=== PATIENT | female | born 1990 | race Hispanic/Latino ===

== ENCOUNTER 2019-12-17 08:22 | Emergency (ER) | payer OTHER ==
[2019-12-17] MEDS ORDERED: Acetaminophen 500 MG TAB ONE (08:44)
== END 2019-12-17 09:07 | disposition home or self-care (01) ==
LOC: ERS 08:22
DX: O99.89 Other specified diseases and conditions complicating pregnancy, childbirth and the puerperium (principal); U07.1 COVID-19
CPT/HCPCS: 99283

== ENCOUNTER 2019-12-23 11:18 | Emergency (ER) | payer OTHER ==
[2019-12-23] MEDS ORDERED: Ondansetron PF 4 MG/2 ML Vial ONE (12:18)
[2019-12-23 13:05] LABS: #Lymphocytes 0.9 thou/uL (1.20-3.40); #Monocytes 0.4 thou/uL (0.11-0.59); #Neutrophils 1.9 thou/uL (1.40-6.50); %Eosinophils 0.8 % (0.0-10.0); %Lymphocytes 26.9 % (21.0-51.0); %Monocytes 12.2 % (0.0-10.0); %Neutrophils 60.1 % (42.0-75.0); Hemoglobin 14.6 g/dL (12.0-16.0); Mean Corpuscular HGB CONC 34.4 g/dL (32.0-36.0); Mean Corpuscular Volume 93.1 fL (78.0-98.0); Mean Platelet Volume 7.5 fL (7.4-10.4); Platelet Count 191 thou/uL (130-400); RBC Distribution Width 10.8 % (11.5-14.5); Red Blood Cell (RBC) Count 4.55 mill/uL (4.20-5.40); White Blood Cell (WBC) Count 3.1 thou/uL (4.8-10.8)
[2019-12-23 13:28] LABS: ALT (SGPT) 98 U/L (8-55); AST (SGOT) 60 U/L (5-34); Albumin 4.2 g/dL (3.5-5.0); Alkaline Phosphatase 186 U/L (40-110); Anion Gap 16 mmol/L (10-20); BUN (Urea Nitrogen) 11 mg/dL (7.0-18.7); Calc. Creatinine Clearance 0 mL/min (70-130); Calcium 9.6 mg/dL (7.8-10.44); Carbon Dioxide 26 mmol/L (22-29); Chloride 98 mmol/L (98-107); Estimated GFR-MDRD Greater than 90; Globulin 3.8 g/dL (2.4-3.5); Glucose 80 mg/dL (70-105); Potassium 4.1 mmol/L (3.5-5.1); Sodium 136 mmol/L (136-145)
== END 2019-12-23 15:32 | disposition home or self-care (01) ==
LOC: ERS 11:18
DX: O98.511 Other viral diseases complicating pregnancy, first trimester (principal); U07.1 COVID-19; O99.281 Endocrine, nutritional and metabolic diseases complicating pregnancy, first trimester; E86.0 Dehydration; O13.1 Gestational [pregnancy-induced] hypertension without significant proteinuria, first trimester; Z3A.10 10 weeks gestation of pregnancy
CPT/HCPCS: 80053; 85025; 96361; 96374; J2405

== ENCOUNTER 2020-01-07 14:48 | Outpatient (CLI) | payer MEDICAID ==
--- NOTE | 2020-01-07 15:24 | ULT ---
Exam: Transabdominal pelvic ultrasound HISTORY: Pelvic pain. Confirm an early . COMPARISON: None TECHNIQUE: Transabdominal imaging of the pelvis is performed. Left ovary is evaluated with grayscale, color flow, Doppler imaging and spectral waveform form analysis FINDINGS: Uterus is identified, measuring 6.7 x 10.2 x 11.9 cm. Within the endometrium, there is a gestational sac, yolk sac and pole. [place]-rump length: 3.5 cm corresponding to gestational age of 10 weeks 3 days heart tones: 155 bpm Subchorionic hemorrhage: None Right ovary: Not appreciated. No masses or fluid in the right adnexa Left ovary: Normal echotexture, measuring 1.4 x 3.2 x 2.3 cm. No free fluid in the left adnexa Ovarian Doppler: Vascular flow to the left ovary IMPRESSION: 1. Single intrauterine gestation with heart tones. Gestational age by crown-rump length is 10 w eeks 6 days.
== END 2020-01-07 14:49 | disposition home or self-care (01) ==
LOC: BICULT 14:48
PROVIDERS: ATTEND Family Medicine
DX: O26.891 Other specified pregnancy related conditions, first trimester (principal); O26.91 Pregnancy related conditions, unspecified, first trimester; R10.2 Pelvic and perineal pain; Z3A.10 10 weeks gestation of pregnancy
CPT/HCPCS: 76856; 93976

== ENCOUNTER 2022-04-05 13:59 | Outpatient (CLI) | payer OTHER | END 2022-04-05 14:00 | disposition home or self-care (01) | LOC: ULT 13:59 | PROVIDERS: ATTEND Family Medicine | DX: R10.2 Pelvic and perineal pain (principal) | CPT/HCPCS: 76856 ==

== ENCOUNTER 2024-05-14 15:34 | Outpatient (CLI) | payer OTHER | END 2024-05-14 15:35 | disposition home or self-care (01) | LOC: ULT 15:34 | PROVIDERS: ATTEND Family Medicine | DX: R10.2 Pelvic and perineal pain (principal) | CPT/HCPCS: 76856; 93976 ==